=== PATIENT | female | born 1975 | race Caucasian/White ===

== ENCOUNTER → 2018-01-31 08:16 | Outpatient (POV) | payer BC, SELFPAY ==
[2018-01-31 09:35] LABS: Basophils # 0.1 K/mm3 (0-0.2); Basophils % 0.7 % (0.1-2.0); Eosinophils # 0.1 K/mm3 (0.0-0.4); Eosinophils % 1.7 % (0.1-12.0); Hematocrit 45.2 % (37.0-47.0); Hemoglobin 13.6 g/dL (12.2-16.2); Lymphocytes # 2.5 K/mm3 (0.7-4.5); Lymphocytes % 33.2 K/mm3 (10-50); Mean Corpuscular HGB Conc 30.1 g/dL (31.8-35.4); Mean Corpuscular Hemoglobin 28.1 pg (27.0-31.2); Mean Corpuscular Volume 93.3 fl (81-99); Mean Platelet Volume 7.7 fl (7.4-10.4); Monocytes # 0.3 K/mm3 (0.1-1.0); Neutrophils # 4.5 K/mm3 (1.8-7.8); Neutrophils % 60.4 % (37.0-80.0); Platelet Count 274 K/mm3 (142-424); Red Blood Count 4.84 M/mm3 (4.20-5.40); Red Cell Distribution Width 12.7 % (11.5-17.5); White Blood Count 7.4 K/mm3 (4.8-10.8)
[2018-01-31 10:37] LABS: Alanine Aminotransferase 67 U/L (12-78); Albumin Level 3.3 gm/dL (3.4-5.0); Albumin/Globulin Ratio 0.9 (1.1-1.8); Alkaline Phosphatase 108 U/L (46-116); Aspartate Amino Transferase 44 U/L (15-37); Bilirubin,Total 0.3 mg/dL (0.2-1.0); Blood Urea Nitrogen 7 mg/dL (7-18); Calcium 8.8 mg/dL (8.5-10.1); Carbon Dioxide 29 mmol/L (21.0-32.0); Chloride 103 mmol/L (98-107); Creatinine,Serum 0.76 mg/dL (0.55-1.02); Estimated Glomerular Filt Rate 84 ml/min (>60); GFR (African American) 102 ML/MIN (>60); Globulin 3.5 gm/dl (1.3-3.2); Glucose 240 mg/dL (74-106); Sodium 139 mmol/L (136-145); Total Protein,Serum 6.8 gm/dL (6.4-8.2)
== END ==
PROVIDERS: PCP Physician Assistant; Visit Provider Nurse Practitioner Acute Care
DX: R94.5 Abnormal results of liver function studies (principal)
CPT/HCPCS: 36415; 80053; 85025

== ENCOUNTER → 2018-02-02 14:43 | Outpatient (REF) | payer BC, SELFPAY ==
--- NOTE | 2018-02-02 14:50 | XR_ITS ---
XR soft tissue neck CLINICAL INDICATION: ITS.REASON: Foreign body sensation ORDERING PHYSICIAN: JANES Hammonds PATIENT AGE: 42 years Comparison: None FINDINGS: No radiopaque foreign body. The epiglottis is unremarkable. There is mild prominence of the prevertebral soft tissues at the C5 level measuring 20 mm. There is mild subglottic narrowing. No soft tissue gas apparent IMPRESSION: 1. No radiopaque foreign body evident. 2. Mild prominence of the soft tissues in the prevertebral region at the C5-C6 area of questionable clinical significance
[2018-02-02 18:45] LABS: Basophils # 0.1 K/mm3 (0-0.2); Basophils % 0.7 % (0.1-2.0); Eosinophils # 0.2 K/mm3 (0.0-0.4); Eosinophils % 1.9 % (0.1-12.0); Hematocrit 47.4 % (37.0-47.0); Hemoglobin 14.5 g/dL (12.2-16.2); Lymphocytes # 2.8 K/mm3 (0.7-4.5); Lymphocytes % 29.8 K/mm3 (10-50); Mean Corpuscular HGB Conc 30.7 g/dL (31.8-35.4); Mean Corpuscular Hemoglobin 28.5 pg (27.0-31.2); Mean Corpuscular Volume 93.1 fl (81-99); Monocytes # 0.6 K/mm3 (0.1-1.0); Neutrophils # 5.7 K/mm3 (1.8-7.8); Neutrophils % 61.5 % (37.0-80.0); Platelet Count 312 K/mm3 (142-424); Red Blood Count 5.09 M/mm3 (4.20-5.40); Red Cell Distribution Width 12.7 % (11.5-17.5); White Blood Count 9.3 K/mm3 (4.8-10.8)
[2018-02-02 19:10] LABS: Alanine Aminotransferase 70 U/L (12-78); Albumin Level 3.6 gm/dL (3.4-5.0); Albumin/Globulin Ratio 0.9 (1.1-1.8); Alkaline Phosphatase 115 U/L (46-116); Anion Gap 11.9 mEq/L (5-15); Aspartate Amino Transferase 46 U/L (15-37); Blood Urea Nitrogen 7 mg/dL (7-18); Carbon Dioxide 30 mmol/L (21.0-32.0); Chloride 104 mmol/L (98-107); Chol/HDL Ratio 6.6 (1-3.5); Cholesterol 217 mg/dL (140-200); Creatinine,Serum 0.67 mg/dL (0.55-1.02); Estimated Glomerular Filt Rate 97 ml/min (>60); GFR (African American) 118 ML/MIN (>60); Globulin 3.9 gm/dl (1.3-3.2); Glucose 107 mg/dL (74-106); HDL Cholesterol 33 mg/dL (29-89); LDL Cholesterol 114 mg/dL (0-130); Potassium 3.9 mmoL/L (3.5-5.1); Sodium 142 mmol/L (136-145); T4 (Thyroxine) 10.6 ug/dl (4.7-13.3); Thyroid Stimulating Hormone 1.29 uIU/ml (0.358-3.740); Total Protein,Serum 7.5 gm/dL (6.4-8.2); Triglycerides 351 mg/dL (30-200); VLDL Cholesterol 70 mg/dL (0-40)
[2018-02-02 19:49] LABS: Bilirubin,Total 0.3 mg/dL (0.2-1.0); Calcium 9.8 mg/dL (8.5-10.1)
[2018-02-04 15:46] LABS: Vitamin D 25 Hydroxy 23.4 ng/mL (30.0-100.0)
== END ==
LOC: LAB 14:43
PROVIDERS: Visit Provider Physician Assistant
DX: R47.02 Dysphasia (principal)
CPT/HCPCS: 70360; 80053; 80061; 82652; 83036; 84436; 84443; 85025

== ENCOUNTER → 2018-02-18 08:51 | Outpatient (CLI) | payer BC, SELFPAY ==
--- NOTE | 2018-02-18 08:54 | FL_ITS ---
FL upper GI esophagus w/air HISTORY: ITS.REASON: DYSPHAGIA sensation of food sticking in throat ORDERING PHYSICIAN: Gigi Wilburn MD PATIENT AGE: 42 years Comparison: None FINDINGS: The swallowing function and solid motility are normal. Spot films of the cervical esophagus show no abnormality while swallowing. No GE reflux was demonstrated during the study. The esophagus, stomach, and duodenum have an unremarkable appearance. There is no evidence of hiatal hernia. No ulcer or mass evident. No mucosal abnormalities apparent. There is normal peristalsis. The duodenal C-loop is nondisplaced. FLUOROSCOPY TIME : 2 minutes and 14 seconds. IMPRESSION: Negative barium swallow and upper GI series
--- NOTE | 2018-02-18 08:54 | US_ITS ---
US thyroid COMPARISON: None HISTORY: Symptoms of dysphasia TECHNIQUE: Targeted ultrasound the thyroid FINDINGS: The isthmus of the gland appears normal. The right lobe measures 2.3 x 2.6 x 4.3 cm. Left lobe measures 2.1 x 2.7 x 4.0 cm. There is a diffusely heterogenic appearance to the parenchyma in both lobes with is no discrete cystic or solid mass identified in either lobe. There is decreased vascularity in each lobe. IMPRESSION: Normal size gland with heterogenic echogenicity suggesting possibility of early subacute thyroiditis.
== END ==
PROVIDERS: PCP Physician Assistant; Visit Provider Surgery
DX: R13.10 Dysphagia, unspecified (principal)
CPT/HCPCS: 74241; 76536

== ENCOUNTER → 2018-06-20 14:23 | Outpatient (POV) | payer BC, SELFPAY | PROVIDERS: PCP Physician Assistant; Visit Provider Nurse Practitioner Acute Care | DX: Z00.00 Encounter for general adult medical examination without abnormal findings (principal) ==

== ENCOUNTER → 2018-12-22 13:38 | Outpatient (CLI) | payer BC, SELFPAY ==
[2018-12-22 18:11] LABS: Alanine Aminotransferase 42 U/L (12-78); Albumin Level 3.6 gm/dL (3.4-5.0); Albumin/Globulin Ratio 0.9 (1.1-1.8); Alkaline Phosphatase 120 U/L (46-116); Anion Gap 12.2 mEq/L (5-15); Aspartate Amino Transferase 24 U/L (15-37); Bilirubin,Total 0.3 mg/dL (0.2-1.0); Blood Urea Nitrogen 9 mg/dL (7-18); Calcium 9.1 mg/dL (8.5-10.1); Carbon Dioxide 29 mmol/L (21.0-32.0); Chloride 105 mmol/L (98-107); Creatinine,Serum 0.76 mg/dL (0.55-1.02); Estimated Glomerular Filt Rate 84 ml/min (>60); GFR (African American) 101 ML/MIN (>60); Globulin 3.8 gm/dl (1.3-3.2); Glucose 150 mg/dL (74-106); Potassium 4.2 mmoL/L (3.5-5.1); Sodium 142 mmol/L (136-145); Total Protein,Serum 7.4 gm/dL (6.4-8.2)
== END ==
PROVIDERS: Visit Provider Nurse Practitioner Acute Care
DX: K30 Functional dyspepsia (principal); F45.8 Other somatoform disorders
CPT/HCPCS: 36415; 80053

== ENCOUNTER → 2019-07-24 10:49 | Outpatient (CLI) | payer BC, SELFPAY ==
[2019-07-24 13:08] LABS: Amphetamine/Metha Screen,Urine Negative ng/mL (<1000); Barbiturates Screen,Urine Negative ng/mL (<200); Benzodiazepines Screen,Urine Negative ng/mL (<200); Cannabinoid Screen,Urine Negative ng/mL (<50); Cocaine Screen,Urine Negative ng/mL (<300); Methadone Screen,Urine Negative ng/mL (<300); Opiate Screen,Urine Negative ng/mL (<300); Phencyclidine Screen,Urine Negative ng/mL (<25)
[2019-08-08 16:04] LABS: Ethanol U, Quan NEGATIVE
== END ==
PROVIDERS: Visit Provider Registered Nurse
DX: F90.2 Attention-deficit hyperactivity disorder, combined type (principal)
CPT/HCPCS: 80305; 80307

== ENCOUNTER → 2019-08-02 15:47 | Outpatient (CLI) | payer BC, SELFPAY ==
[2019-08-02 18:27] LABS: Alanine Aminotransferase 31 U/L (12-78); Albumin Level 3.7 gm/dL (3.4-5.0); Alkaline Phosphatase 104 U/L (46-116); Aspartate Amino Transferase 22 U/L (15-37); Bilirubin,Total 0.2 mg/dL (0.2-1.0); Blood Urea Nitrogen 8 mg/dL (7-18); Calcium 8.9 mg/dL (8.5-10.1); Carbon Dioxide 28 mmol/L (21.0-32.0); Chloride 102 mmol/L (98-107); Creatinine,Serum 0.66 mg/dL (0.55-1.02); Estimated Glomerular Filt Rate 99 ml/min (>60); GFR (African American) 119 ML/MIN (>60); Globulin 3.7 gm/dl (1.3-3.2); Glucose 81 mg/dL (74-106); Sodium 140 mmol/L (136-145); Total Protein,Serum 7.4 gm/dL (6.4-8.2)
[2019-08-02 18:57] LABS: Hemoglobin A1C 5.7 % (0.0-7.0)
== END ==
PROVIDERS: Visit Provider Nurse Practitioner Family
DX: K30 Functional dyspepsia (principal); K75.81 Nonalcoholic steatohepatitis (NASH); R73.09 Other abnormal glucose; F45.8 Other somatoform disorders
CPT/HCPCS: 36415; 80053; 83036

== ENCOUNTER → 2019-08-07 10:09 | Outpatient (POV) | payer BC, SELFPAY | PROVIDERS: Visit Provider Nurse Practitioner Family | DX: Z00.00 Encounter for general adult medical examination without abnormal findings (principal) ==

== ENCOUNTER → 2020-08-02 13:03 | Outpatient (CLI) | payer BC, SELFPAY ==
[2020-08-02 15:01] LABS: Chloride 106 mmol/L (98-107); Potassium 4.3 mmoL/L (3.5-5.1); Sodium 139 mmol/L (136-145)
[2020-08-02 15:04] LABS: Alanine Aminotransferase 27 U/L (12-78); Albumin Level 4.1 g/dl (3.5-5.0); Albumin/Globulin Ratio 1.4 (1.1-1.8); Alkaline Phosphatase 69 U/L (38-126); Anion Gap 11.3 mEq/L (5-15); Aspartate Amino Transferase 25 U/L (14-36); Bilirubin,Total 0.3 mg/dl (0.2-1.3); Blood Urea Nitrogen 14 mg/dl (7-17); Carbon Dioxide 26 mmol/L (22.0-30.0); Estimated Glomerular Filt Rate 92 ml/min (>60); GFR (African American) 111 ML/MIN (>60); Globulin 2.9 g/dL (1.3-3.2)
[2020-08-02 15:05] LABS: Calcium 9.2 mg/dl (8.4-10.2); Glucose 106 mg/dl (74-100)
== END ==
PROVIDERS: Visit Provider Nurse Practitioner Family
DX: K30 Functional dyspepsia (principal); K76.9 Liver disease, unspecified; K58.9 Irritable bowel syndrome, unspecified; F45.8 Other somatoform disorders
CPT/HCPCS: 36415; 80053

== ENCOUNTER → 2020-08-05 08:19 | Outpatient (POV) | payer BC, SELFPAY | PROVIDERS: Visit Provider Nurse Practitioner Family | DX: Z00.00 Encounter for general adult medical examination without abnormal findings (principal) ==

== ENCOUNTER 2020-09-10 20:35 | Emergency (ER) | payer BC, SELFPAY ==
[2020-09-10 20:35] VITALS: BP 159/89; PULSE 107; RESP 16; TEMP 36.4; O2SAT 97; BMI 41.7
--- NOTE | 2020-09-10 21:08 | HMH.EDUTC ---
[facility] [place] Disposition Clinical Impression: Exposure to COVID-19 virus Disposition: Home, Self-Care Condition on Discharge: Good Instructions: Preventing the Spread of Coronavirus Discharge Instructions, DI for COVID-19 (Suspected or Confirmed ) Additional Instructions: Drink plenty of fluids. Take tylenol for pain or fever. Return if you begin to have difficulty breathing. Follow up with your regular doctor. GO TO THE ER FOR ANY WORSENING SYMPTOMS Referrals: Kathy Fairbanks PA [Primary Care Provider] - Time of Disposition: 21:10 Medical Decision Making - Medical Records Medical records reviewed: No: I reviewed the patient's medical records. - Jus Inquiry Pt receiving controlled substance: No Vital Signs: 09/10/20 20:35 Temperature 97.5 F L Temperature Source Oral Pulse Rate [Right] 107 H Respiratory Rate 16 Blood Pressure [Right Arm] 159/89 H Blood Pressure Mean [Right Arm] 112 02 Sat by Pulse Oximetry 97 Orders (Tests/Meds): ORDERS Category Date Time Status Covid-19 Nasal PCR Sendout P&C Routine Lab 09/10/20 20:37 Ordered [facility] [place] HPI - General Stated complaint: covid test Time Seen by Provider: 09/10/20 21:08 Description of Symptoms (Recalled from Triage Doc. by RN): pt request covid test pt c/o body aches, sore throat HEENT Symptoms (Recalled from RN notes): No Resp Symptoms (Recalled from RN notes): Yes Skin Symptoms (Recalled from RN notes): No MS Symptoms (Recalled from RN notes): No Functional Status (Recalled from RN notes): wnl - History of Present Illness Provider Complaint: Her mother has been diagnosed with Covid-19. She has been around her mother a lot. She denies any symptoms so far. - Related Data Home Medications Medication Instructions Recorded Confirmed vortioxetine 10 mg tablet 10 mg PO DAILY 30 Days #30 11/10/17 03/04/20 alpha lipoic acid 200 mg capsule 200 mg PO DAILY cap 11/15/17 03/04/20 colestipol 1 gram tablet 2 g PO DAILY 11/15/17 03/04/20 Cholecalciferol (Vitamin D3) 1,000 unit PO ONCE 04/22/18 03/04/20 [Vitamin D3 1,000 Unit Cap] Ergocalciferol (Vitamin D2) 50,000 unit PO QWEEK 04/22/18 03/04/20 [Drisdol] Fluticasone Propionate [Flonase 1 spray INTRANASAL QDAY 09/16/19 03/04/20 Allergy Relief NS] Imipramine HCl [Tofranil 25mg 50 mg PO DAILY 09/16/19 03/04/20 tablet] Metformin HCl 500 mg PO HS 09/16/19 03/04/20 Previous Rx's Medication Instructions Recorded atorvastatin 10 mg tablet See Rx Instructions .ROUTE 11/02/19 .COMPLEX #90 tab methylprednisolone 4 mg tablets in 4 mg PO PER PKG DIR 6 Days #21 tab 03/04/20 a dose pack triamcinolone acetonide 0.1 % 1 applic TOPICAL BID #30 g 03/04/20 topical cream nebivolol 5 mg tablet 5 mg PO DAILY #30 tab 06/17/20 levothyroxine 125 mcg tablet 125 mcg PO DAILY #90 tab 08/01/20 Allergies Allergy/AdvReac Type Severity Reaction Status Date / Time Penicillins [PENICILLINS] Allergy Unknown I-RASH Verified 09/10/20 21:08 - Worker's Comp Is this a Worker's Comp case?: No Is this an H Worker's Comp?: No Is this a [place] Worker's Comp?: No [facility] History - Hepatitis A Screen Drug use history?: No High risk sexual behaviors?: No History of sexually transmitted infection?: No Currently employed?: No Childcare worker?: No Do you have indoor plumbing?: Yes Do you have electricity?: Yes Attestation statement:: This patient has been screened for Hepatitis A risk factors. I have reviewed the patient's past medical history: Yes Medical History: Reports:: Depression, Hyperlipidemia, Lung Disease Denies:: Diabetes Mellitus Type 1, Diabetes Mellitus Type 2, Internal Pacemaker, Seizures Other Medical History: Reports: Hypothyroidism, Other Comment: ADHD Laterality Cases: Bilateral: Tonsillectomy Other Surgeries: Yes: Hysterectomy-Partial, Other. No: Pacemaker Amputation: No Fractures: No Comment: Gallbladder, tympanostomy tubes - Social History Smoking Statu
[2020-09-10 21:16] VITALS: BP 159/89; PULSE 107; RESP 16; TEMP 36.4; O2SAT 97
--- NOTE | 2020-09-12 10:29 | PC.NURSE ---
PT NOTIFIED OF POSITIVE COVID RESULT
[2020-09-12 10:37] LABS: Covid-19 Nasal PCR Sendout P&C POSITIVE
== END 2020-09-10 21:24 | disposition home or self-care (01) ==
PROVIDERS: Emergency Provider Nurse Practitioner Family; PCP Physician Assistant
DX: U07.1 COVID-19 (principal); E78.5 Hyperlipidemia, unspecified; F33.1 Major depressive disorder, recurrent, moderate; E03.9 Hypothyroidism, unspecified; I10 Essential (primary) hypertension; Z79.899 Other long term (current) drug therapy
CPT/HCPCS: 99202; G0463; U0004

== ENCOUNTER 2020-09-17 12:41 | Emergency (ER) | payer BC, SELFPAY ==
[2020-09-17 12:45] VITALS: BP 141/74; PULSE 113; RESP 23; TEMP 37.2; O2SAT 99; BMI 40.4
--- NOTE | 2020-09-17 12:51 | XR_ITS ---
PROCEDURE: XR CHEST PORTABLE CLINICAL HISTORY: chest congestion COMPARISON: No exams were available for comparison FINDINGS: The cardiomediastinal silhouette and pulmonary vascularity are within normal limits. The lungs are clear without infiltrates, suspicious nodules, or pleural effusions. No acute bony abnormalities. IMPRESSION: No acute findings. Dictated by: Cristian Petersen MD 09/17/2020 13:02 Cristian Petersen MD in OV 09/17/2020 13:02
--- NOTE | 2020-09-17 13:04 | HMH.EDUTC ---
[facility] [place] Disposition Clinical Impression: Muscle ache Disposition: Home, Self-Care Condition on Discharge: Good Instructions: DI for COVID-19 (Suspected or Confirmed ), Coronavirus Disease 2019, Preventing the Spread of Coronavirus Discharge Instructions Additional Instructions: Continue medication as prescribed *Warm soaks may help with muscle aches and pain Return if needed Straight to ER if any life threatening symptoms or worsening of symptoms associated with COVID Referrals: Kathy Fairbanks PA [Primary Care Provider] - As needed Medical Decision Making - Jus Inquiry Pt receiving controlled substance: No Jus was queried for this patient: No Vital Signs: 09/17/20 12:45 09/17/20 13:20 Temperature 98.9 F 98.9 F Temperature Source Oral Pulse Rate 113 H Pulse Rate [Left Brachial] 113 H Respiratory Rate 23 23 Blood Pressure 141/74 H Blood Pressure [Right Arm] 141/74 H Blood Pressure Mean [Right Arm] 96 Blood Pressure Source [Right Arm] Automatic Cuff Blood Pressure Position [Right Arm] Sitting 02 Sat by Pulse Oximetry 99 Oxygen Delivery Method Room Air - Radiology Data #1 Image(s): Chest Image Reviewed: Yes I have reviewed radiologist's interpretation Preliminary Findings: Normal/NAD IMPRESSION: No acute findings. [facility] [place] HPI - General Stated complaint: covid +, chest congestion Time Seen by Provider: 09/17/20 13:04 Mode of Arrival: Ambulatory Source of Information: Patient Limitations: No Limitations Description of Symptoms (Recalled from Triage Doc. by RN): PATIENT TESTED POSITIVE FOR COVID ON WEDNESDAY. C/O CHEST HEAVINESS TODAY, STATING IT FEELS LIKE SOMEONE IS STEPPING ON IT. PT REPORTS SHE CALLED HER PCP WHO RECOMMENDED SHE COME HERE AND GET A CHEST X RAY HEENT Symptoms (Recalled from RN notes): No Resp Symptoms (Recalled from RN notes): No Skin Symptoms (Recalled from RN notes): No MS Symptoms (Recalled from RN notes): No Functional Status (Recalled from RN notes): WNL - History of Present Illness Provider Complaint: Patient state that she has been feeling like her chest muscles is sore like they would be from coughing and feels tight like at times hard to get a deep breath and she was worried that she may be getting some chest congestion but not coughing anything up. State that she tested positive for COVID one week ago Denies chest pain denies shortness of breath States that she talked to her PCP and they told her she may need to come in and get a chest xray - Related Data Home Medications Medication Instructions Recorded Confirmed vortioxetine 10 mg tablet 10 mg PO DAILY 30 Days #30 11/10/17 03/04/20 alpha lipoic acid 200 mg capsule 200 mg PO DAILY cap 11/15/17 03/04/20 colestipol 1 gram tablet 2 g PO DAILY 11/15/17 03/04/20 Cholecalciferol (Vitamin D3) 1,000 unit PO ONCE 04/22/18 03/04/20 [Vitamin D3 1,000 Unit Cap] Ergocalciferol (Vitamin D2) 50,000 unit PO QWEEK 04/22/18 03/04/20 [Drisdol] Fluticasone Propionate [Flonase 1 spray INTRANASAL QDAY 09/16/19 03/04/20 Allergy Relief NS] Imipramine HCl [Tofranil 25mg 50 mg PO DAILY 09/16/19 03/04/20 tablet] Metformin HCl 500 mg PO HS 09/16/19 03/04/20 Previous Rx's Medication Instructions Recorded atorvastatin 10 mg tablet See Rx Instructions .ROUTE 11/02/19 .COMPLEX #90 tab methylprednisolone 4 mg tablets in 4 mg PO PER PKG DIR 6 Days #21 tab 03/04/20 a dose pack triamcinolone acetonide 0.1 % 1 applic TOPICAL BID #30 g 03/04/20 topical cream nebivolol 5 mg tablet 5 mg PO DAILY #30 tab 06/17/20 levothyroxine 125 mcg tablet 125 mcg PO DAILY #90 tab 08/01/20 Ondansetron [Zofran 4mg ODT] 4 mg PO Q8HP PRN #20 tab.rapdis 09/10/20 azithromycin 250 mg tablet See Rx Instructions PO .COMPLEX #6 09/13/20 tab prednisone 20 mg tablet 20 mg PO BID #10 tab 09/13/20 Allergies Allergy/AdvReac Type Severity Reaction Status Date / Time Penicillins [PENICILLINS] Allergy Unknown I-RASH Verified
[2020-09-17 13:20] VITALS: BP 141/74; PULSE 113; RESP 23; TEMP 37.2; O2SAT 99
== END 2020-09-17 13:28 | disposition home or self-care (01) ==
PROVIDERS: Emergency Provider Nurse Practitioner; PCP Physician Assistant
DX: U07.1 COVID-19 (principal); R07.89 Other chest pain; E11.9 Type 2 diabetes mellitus without complications; E03.9 Hypothyroidism, unspecified; Z88.0 Allergy status to penicillin; Z79.899 Other long term (current) drug therapy
CPT/HCPCS: 71045; 99202; G0463

== ENCOUNTER → 2021-07-31 14:11 | Outpatient (CLI) | payer BC, SELFPAY ==
[2021-07-31 14:43] LABS: Basophils # 0.1 K/mm3 (0-0.2); Basophils % 0.9 % (0.1-2.0); Eosinophils # 0.1 K/mm3 (0.0-0.4); Eosinophils % 1.3 % (0.1-12.0); Hematocrit 42.9 % (37.0-47.0); Lymphocytes # 2.8 K/mm3 (0.7-4.5); Lymphocytes % 30.9 % (10-50); Mean Corpuscular HGB Conc 32.6 g/dL (31.8-35.4); Mean Corpuscular Hemoglobin 29.3 pg (27.0-31.2); Mean Platelet Volume 8.2 fl (7.4-10.4); Monocytes # 0.5 K/mm3 (0.1-1.0); Monocytes % 5.1 % (1.7-9.3); Neutrophils # 5.7 K/mm3 (1.8-7.8); Neutrophils % 61.8 % (37.0-80.0); Platelet Count 414 K/mm3 (142-424); Red Blood Count 4.77 M/mm3 (4.20-5.40); Red Cell Distribution Width 12.9 % (11.5-17.5); White Blood Count 9.1 K/mm3 (4.8-10.8)
[2021-07-31 15:26] LABS: Chloride 103 mmol/L (98-107); Sodium 140 mmol/L (136-145)
[2021-07-31 15:27] LABS: Potassium 4.4 mmoL/L (3.5-5.1)
[2021-07-31 15:29] LABS: Alanine Aminotransferase 31 U/L (12-78); Albumin Level 4.4 g/dl (3.5-5.0); Albumin/Globulin Ratio 1.5 (1.1-1.8); Alkaline Phosphatase 98 U/L (38-126); Anion Gap 12.4 mEq/L (5-15); Aspartate Amino Transferase 42 U/L (14-36); Bilirubin,Total 0.3 mg/dl (0.2-1.3); Blood Urea Nitrogen 12 mg/dl (7-17); Carbon Dioxide 29 mmol/L (22.0-30.0); Estimated Glomerular Filt Rate 91 ml/min (>60); GFR (African American) 111 ML/MIN (>60); Globulin 2.9 g/dL (1.3-3.2); Total Protein,Serum 7.3 g/dl (6.3-8.2)
[2021-07-31 15:30] LABS: Calcium 9.5 mg/dl (8.4-10.2); Glucose 118 mg/dl (74-100)
== END ==
PROVIDERS: Visit Provider Nurse Practitioner Family
DX: K75.81 Nonalcoholic steatohepatitis (NASH) (principal); F45.8 Other somatoform disorders; K58.9 Irritable bowel syndrome, unspecified; K30 Functional dyspepsia
CPT/HCPCS: 36415; 80053; 85025

== ENCOUNTER → 2021-11-20 16:12 | Outpatient (CLI) | payer BC, SELFPAY ==
[2021-11-20 13:11] LABS: Basophils # 0.1 K/mm3 (0-0.2); Basophils % 1.4 % (0.1-2.0); Eosinophils # 0.1 K/mm3 (0.0-0.4); Eosinophils % 1.1 % (0.1-12.0); Hematocrit 43.1 % (37.0-47.0); Hemoglobin 13.7 g/dL (12.2-16.2); Lymphocytes # 2.8 K/mm3 (0.7-4.5); Lymphocytes % 30.5 % (10-50); Mean Corpuscular HGB Conc 31.8 g/dL (31.8-35.4); Mean Corpuscular Hemoglobin 29.9 pg (27.0-31.2); Mean Platelet Volume 8.5 fl (7.4-10.4); Monocytes # 0.6 K/mm3 (0.1-1.0); Monocytes % 6.2 % (1.7-9.3); Neutrophils # 5.6 K/mm3 (1.8-7.8); Neutrophils % 60.8 % (37.0-80.0); Platelet Count 425 K/mm3 (142-424); Red Blood Count 4.59 M/mm3 (4.20-5.40); White Blood Count 9.2 K/mm3 (4.8-10.8)
[2021-11-20 13:36] LABS: Alanine Aminotransferase 32 U/L (12-78); Albumin Level 4.2 g/dl (3.5-5.0); Albumin/Globulin Ratio 1.4 (1.1-1.8); Alkaline Phosphatase 91 U/L (38-126); Anion Gap 10.9 mEq/L (5-15); Aspartate Amino Transferase 33 U/L (14-36); Bilirubin,Total 0.5 mg/dl (0.2-1.3); Blood Urea Nitrogen 18 mg/dl (7-17); Calcium 9.4 mg/dl (8.4-10.2); Carbon Dioxide 30 mmol/L (22.0-30.0); Chloride 102 mmol/L (98-107); Chol/HDL Ratio 3.6 (1-3.5); Cholesterol 151 mg/dl (140-200); Estimated Glomerular Filt Rate 91 ml/min (>60); GFR (African American) 110 ML/MIN (>60); Glucose 95 mg/dl (74-100); HDL Cholesterol 42 mg/dl (40-60); Potassium 4.9 mmoL/L (3.5-5.1); Sodium 138 mmol/L (136-145); Total Protein,Serum 7.2 g/dl (6.3-8.2); Triglycerides 207 mg/dl (30-150); VLDL Cholesterol 41 mg/dL (0-40)
[2021-11-20 13:46] LABS: Direct LDL Cholesterol 75.13 mg/dL (100-129)
[2021-11-20 13:51] LABS: 25-OH Vitamin D, Total 18.6 ng/mL (30-100)
[2021-11-20 14:06] LABS: Thyroid Stimulating Hormone 0.49 uIU/mL (0.465-4.68)
== END ==
PROVIDERS: Visit Provider Physician Assistant
DX: E03.9 Hypothyroidism, unspecified (principal); E55.9 Vitamin D deficiency, unspecified
CPT/HCPCS: 80053; 80061; 82306; 84443; 85025

== ENCOUNTER → 2022-08-04 08:11 | Outpatient (CLI) | payer BC, SELFPAY ==
[2022-08-04 09:05] LABS: Basophils # 0.1 K/mm3 (0-0.2); Basophils % 0.8 % (0.1-2.0); Eosinophils # 0.1 K/mm3 (0.0-0.4); Eosinophils % 1.5 % (0.1-12.0); Hematocrit 41.8 % (37.0-47.0); Hemoglobin 13.1 g/dL (12.2-16.2); Lymphocytes % 31.9 % (10-50); Mean Corpuscular HGB Conc 31.3 g/dL (31.8-35.4); Mean Corpuscular Hemoglobin 28.8 pg (27.0-31.2); Mean Corpuscular Volume 92.1 fl (81-99); Mean Platelet Volume 8.2 fl (7.4-10.4); Monocytes # 0.6 K/mm3 (0.1-1.0); Neutrophils # 5.6 K/mm3 (1.8-7.8); Neutrophils % 59.7 % (37.0-80.0); Platelet Count 346 K/mm3 (142-424); Red Blood Count 4.54 M/mm3 (4.20-5.40); Red Cell Distribution Width 13.3 % (11.5-17.5); White Blood Count 9.4 K/mm3 (4.8-10.8)
[2022-08-04 10:57] LABS: Chloride 105 mmol/L (98-107)
[2022-08-04 10:58] LABS: Potassium 4.6 mmoL/L (3.5-5.1); Sodium 136 mmol/L (136-145)
[2022-08-04 11:00] LABS: Blood Urea Nitrogen 15 mg/dl (7-17); Estimated Glomerular Filt Rate 90 ml/min (>60); GFR (African American) 109 ML/MIN (>60)
[2022-08-04 11:01] LABS: Alanine Aminotransferase 33 U/L (12-78); Albumin/Globulin Ratio 1.5 (1.1-1.8); Alkaline Phosphatase 96 U/L (38-126); Anion Gap 8.6 mEq/L (5-15); Aspartate Amino Transferase 33 U/L (14-36); Calcium 9.5 mg/dl (8.4-10.2); Carbon Dioxide 27 mmol/L (22.0-30.0); Globulin 2.7 g/dL (1.3-3.2); Glucose 101 mg/dl (74-100); Total Protein,Serum 6.7 g/dl (6.3-8.2)
[2022-08-04 11:06] LABS: Bilirubin,Total < 0.1 mg/dl (0.2-1.3)
== END ==
PROVIDERS: PCP Physician Assistant; Visit Provider Nurse Practitioner Family
DX: K30 Functional dyspepsia (principal); F45.8 Other somatoform disorders; K58.9 Irritable bowel syndrome, unspecified; R94.5 Abnormal results of liver function studies; K75.81 Nonalcoholic steatohepatitis (NASH)
CPT/HCPCS: 36415; 80053; 85025

== ENCOUNTER → 2023-06-21 09:13 | Outpatient (CLI) | payer BC, SELFPAY ==
[2023-06-21 20:20] LABS: Basophils % 0.5 % (0.1-2.0); Eosinophils # 0.1 K/mm3 (0.0-0.4); Eosinophils % 1.2 % (0.1-12.0); Hematocrit 40.8 % (37.0-47.0); Hemoglobin 13.5 g/dL (12.2-16.2); Lymphocytes # 2.5 K/mm3 (0.7-4.5); Lymphocytes % 32.1 % (10-50); Mean Corpuscular Hemoglobin 30.6 pg (27.0-31.2); Mean Corpuscular Volume 92.8 fl (81-99); Mean Platelet Volume 9.4 fl (7.4-10.4); Monocytes # 0.6 K/mm3 (0.1-1.0); Monocytes % 7.7 % (1.7-9.3); Neutrophils # 4.6 K/mm3 (1.8-7.8); Neutrophils % 58.5 % (37.0-80.0); Platelet Count 308 K/mm3 (142-424); White Blood Count 7.9 K/mm3 (4.8-10.8)
[2023-06-21 20:28] LABS: Alanine Aminotransferase 44 U/L (12-78); Albumin Level 4.1 g/dl (3.5-5.0); Albumin/Globulin Ratio 1.3 (1.1-1.8); Alkaline Phosphatase 109 U/L (38-126); Anion Gap 14.6 mEq/L (5-15); Aspartate Amino Transferase 39 U/L (14-36); Bilirubin,Total 0.3 mg/dl (0.2-1.3); Blood Urea Nitrogen 15 mg/dl (7-17); Calcium 9.5 mg/dl (8.4-10.2); Carbon Dioxide 25 mmol/L (22.0-30.0); Chloride 105 mmol/L (98-107); Chol/HDL Ratio 3.8 (1-3.5); Cholesterol 150 mg/dl (140-200); Estimated Glomerular Filt Rate 90 ml/min (>60); GFR (African American) 109 ML/MIN (>60); Globulin 3.1 g/dL (1.3-3.2); Glucose 88 mg/dl (74-100); HDL Cholesterol 40 mg/dl (40-60); Potassium 4.6 mmoL/L (3.5-5.1); Sodium 140 mmol/L (136-145); Total Protein,Serum 7.2 g/dl (6.3-8.2); Triglycerides 223 mg/dl (30-150); VLDL Cholesterol 45 mg/dL (0-40)
[2023-06-21 20:39] LABS: Direct LDL Cholesterol 87.21 mg/dL (100-129)
[2023-06-21 20:45] LABS: T4 (Thyroxine) 11.3 ug/dl (5.53-11.0)
[2023-06-21 20:47] LABS: 25-OH Vitamin D, Total 21.5 ng/mL (30-100)
[2023-06-21 20:59] LABS: Thyroid Stimulating Hormone 1.22 uIU/mL (0.465-4.68)
== END ==
PROVIDERS: PCP Physician Assistant; Visit Provider Physician Assistant
DX: E78.5 Hyperlipidemia, unspecified (principal); R03.0 Elevated blood-pressure reading, without diagnosis of hypertension; Z79.84 Long term (current) use of oral hypoglycemic drugs; Z79.899 Other long term (current) drug therapy
CPT/HCPCS: 80053; 80061; 82306; 84436; 84443; 85025

== ENCOUNTER → 2023-07-29 11:39 | Outpatient (CLI) | payer BC, SELFPAY ==
[2023-07-29 13:30] LABS: Alanine Aminotransferase 44 U/L (12-78); Albumin Level 4.4 g/dl (3.5-5.0); Albumin/Globulin Ratio 1.4 (1.1-1.8); Alkaline Phosphatase 85 U/L (38-126); Anion Gap 13.2 mEq/L (5-15); Aspartate Amino Transferase 41 U/L (14-36); Bilirubin,Total 0.5 mg/dl (0.2-1.3); Blood Urea Nitrogen 11 mg/dl (7-17); Calcium 9.2 mg/dl (8.4-10.2); Carbon Dioxide 26 mmol/L (22.0-30.0); Chloride 101 mmol/L (98-107); Estimated Glomerular Filt Rate 78 ml/min (>60); GFR (African American) 94 ML/MIN (>60); Globulin 3.1 g/dL (1.3-3.2); Glucose 106 mg/dl (74-100); Potassium 4.2 mmoL/L (3.5-5.1); Sodium 136 mmol/L (136-145); Total Protein,Serum 7.5 g/dl (6.3-8.2)
== END ==
PROVIDERS: PCP Physician Assistant; Visit Provider Nurse Practitioner Family
DX: K30 Functional dyspepsia (principal); K58.9 Irritable bowel syndrome, unspecified; K75.81 Nonalcoholic steatohepatitis (NASH)
CPT/HCPCS: 36415; 80053

== ENCOUNTER 2023-10-05 10:05 | Outpatient (CLI) | payer BC, SELFPAY ==
--- NOTE | 2023-10-05 10:08 | XR_ITS ---
FINAL REPORT CLINICAL HISTORY: Bilateral wrist pain COMPARISON: None FINDINGS: AP, oblique, and lateral views of the right wrist were obtained. There is no prior exam for comparison. There is no acute fracture or dislocation. Mild degenerative changes present. The soft tissues are normal. IMPRESSION: No acute osseous abnormality of the right wrist. Mild degenerative change. Reviewed, Interpreted and Dictated by Gigi Alex III, MD Transcribed by Radha Watkins Authenticated and [facility]
--- NOTE | 2023-10-05 10:08 | XR_ITS ---
FINAL REPORT CLINICAL HISTORY: bilateral wrist pain COMPARISON: None FINDINGS: AP, oblique, and lateral views of the left wrist were obtained. There is no prior exam for comparison. There is no acute fracture or dislocation. The joint spaces are preserved. The soft tissues are normal. IMPRESSION: No acute osseous abnormality of the left wrist. Reviewed, Interpreted and Dictated by Gigi Alex III, MD Transcribed by Radha Watikns Authenticated and [facility]
== END 2023-10-05 23:59 ==
LOC: RAD 10:06
PROVIDERS: PCP Physician Assistant; Visit Provider Orthopaedic Surgery
DX: M25.531 Pain in right wrist (principal); M25.532 Pain in left wrist
CPT/HCPCS: 73110

== ENCOUNTER 2024-02-25 12:58 | Outpatient (CLI) | payer BC, SELFPAY | END 2024-02-25 23:59 | disposition home or self-care (01) | LOC: RAD 12:58 | PROVIDERS: PCP Physician Assistant; Visit Provider Obstetrics & Gynecology | DX: Z12.31 Encounter for screening mammogram for malignant neoplasm of breast (principal) | CPT/HCPCS: 77063; 77067 ==

== ENCOUNTER 2024-02-29 14:41 | Outpatient (CLI) | payer BC, SELFPAY ==
[2024-02-29 17:03] LABS: Basophils % 0.5 % (0.1-2.0); Eosinophils # 0.1 K/mm3 (0.0-0.4); Hematocrit 42.2 % (37.0-47.0); Hemoglobin 13.2 g/dL (12.2-16.2); Lymphocytes # 2.4 K/mm3 (0.7-4.5); Lymphocytes % 27.1 % (10-50); Mean Corpuscular HGB Conc 31.1 g/dL (31.8-35.4); Mean Corpuscular Hemoglobin 29.5 pg (27.0-31.2); Mean Corpuscular Volume 94.6 fl (81-99); Mean Platelet Volume 8.1 fl (7.4-10.4); Monocytes # 0.5 K/mm3 (0.1-1.0); Monocytes % 5.9 % (1.7-9.3); Neutrophils # 5.7 K/mm3 (1.8-7.8); Neutrophils % 65.5 % (37.0-80.0); Platelet Count 285 K/mm3 (142-424); Red Blood Count 4.46 M/mm3 (4.20-5.40); Red Cell Distribution Width 13.3 % (11.5-17.5); White Blood Count 8.7 K/mm3 (4.8-10.8)
[2024-02-29 17:32] LABS: Hemoglobin A1C 5.5 % (4.0-6.0)
[2024-02-29 18:18] LABS: Chloride 106 mmol/L (98-107); Potassium 4.7 mmoL/L (3.5-5.1); Sodium 141 mmol/L (136-145)
[2024-02-29 18:20] LABS: Alanine Aminotransferase 45 U/L (12-78); Aspartate Amino Transferase 46 U/L (14-36); Blood Urea Nitrogen 12 mg/dl (7-17); Estimated Glomerular Filt Rate 77 ml/min (>60); GFR (African American) 93 ML/MIN (>60)
[2024-02-29 18:21] LABS: Albumin Level 4.3 g/dl (3.5-5.0); Albumin/Globulin Ratio 1.4 (1.1-1.8); Alkaline Phosphatase 75 U/L (38-126); Anion Gap 10.7 mEq/L (5-15); Bilirubin,Total 0.3 mg/dl (0.2-1.3); Calcium 9.4 mg/dl (8.4-10.2); Carbon Dioxide 29 mmol/L (22.0-30.0); Cholesterol 163 mg/dl (140-200); Globulin 3.1 g/dL (1.3-3.2); Glucose 80 mg/dl (74-100); HDL Cholesterol 41 mg/dl (40-60); Total Protein,Serum 7.4 g/dl (6.3-8.2); Triglycerides 163 mg/dl (30-150); VLDL Cholesterol 33 mg/dL (0-40)
[2024-02-29 18:32] LABS: Direct LDL Cholesterol 91.03 mg/dL (100-129)
[2024-03-01 10:36] LABS: Thyroid Stimulating Hormone 0.65 uIU/mL (0.465-4.68)
== END 2024-02-29 23:59 | disposition home or self-care (01) ==
LOC: LAB.DROPOF 03-01 14:42
PROVIDERS: PCP Physician Assistant; Visit Provider Physician Assistant
DX: E03.9 Hypothyroidism, unspecified (principal); E55.9 Vitamin D deficiency, unspecified; E78.5 Hyperlipidemia, unspecified
CPT/HCPCS: 80050; 80053; 80061; 83036; 84443; 85025

== ENCOUNTER 2024-03-07 14:45 | Outpatient (CLI) | payer BC, SELFPAY ==
--- NOTE | 2024-03-07 14:45 | US_ITS ---
PROCEDURE INFORMATION: Exam: US Left Breast, Complete MG Left Diagnostic Breast Tomosynthesis Exam date and time: 03/07/2024 2:32 PM Age: 48 years old Clinical indication: Callback for additional assessment of possible architectural change in the middle 3rd of the left upper outer quadrant identified on screening mammogram 02/25/2024 TECHNIQUE: Imaging protocol: Complete ultrasound of all four quadrants of the left breast and the retroareolar regions, including ultrasound of the axilla when performed. Left Diagnostic tomosynthesis and 2D mammography including computer-aided detection (CAD) when performed. Unilateral or bilateral exam. COMPARISON: MG MM DIG SCREENING MAMM BI W/CAD 02/25/2024 12:50 PM FINDINGS: MAMMOGRAPHY: Breast composition: There are scattered areas of fibroglandular density. Breast mammogram findings: No persistent mass, architectural distortion, or suspicious calcifications are present to suggest malignancy. Findings from recent screening mammography probably reflect overlapping fibroglandular tissue ULTRASOUND: Breast ultrasound findings: Four quadrant and retroareolar left breast ultrasound and left axilla ultrasound There is a reniform shaped circumscribed hypoechoic 0.5 x 0.3 x 0.3 cm mass in the 4 o'clock left breast 3 cm from the nipple. This has features highly suggestive of a benign intramammary lymph node with no mammographic correlate Specifically, in the upper outer middle 1/3 only normal glandular structures are appreciated Otherwise, only normal glandular structures are present in the regions assessed No suspicious solid or cystic mass is present. No architectural distortion or shadowing is present. No axillary adenopathy is present. IMPRESSION: Six-month follow-up targeted 4 o'clock left breast ultrasound is recommended to assess stability of a suspected incidentally discovered 0.5 cm intramammary lymph node No mammographic evidence of malignancy. Recommend annual screening mammography unless otherwise clinically indicated. ASSESSMENT: BI-RADS category 3: Probably benign
== END 2024-03-07 23:59 | disposition home or self-care (01) ==
LOC: RAD 14:45
PROVIDERS: PCP Obstetrics & Gynecology; Visit Provider Obstetrics & Gynecology
DX: R92.8 Other abnormal and inconclusive findings on diagnostic imaging of breast (principal)
CPT/HCPCS: 76641; 77061; 77065; G0279

== ENCOUNTER 2024-10-30 12:04 | Outpatient (CLI) | payer BC, SELFPAY ==
[2024-10-30 12:41] LABS: Basophils % 0.5 % (0.1-2.0); Eosinophils # 0.1 K/mm3 (0.0-0.4); Eosinophils % 1.2 % (0.1-12.0); Lymphocytes # 2.2 K/mm3 (0.7-4.5); Lymphocytes % 27.5 % (10-50); Mean Corpuscular HGB Conc 31.7 g/dL (31.8-35.4); Mean Corpuscular Hemoglobin 28.8 pg (27.0-31.2); Mean Corpuscular Volume 90.7 fl (81-99); Monocytes # 0.8 K/mm3 (0.1-1.0); Monocytes % 10.2 % (1.7-9.3); Neutrophils # 4.9 K/mm3 (1.8-7.8); Neutrophils % 60.2 % (37.0-80.0); Platelet Count 293 K/mm3 (142-424); Red Blood Count 4.52 M/mm3 (4.20-5.40); Red Cell Distribution Width 12.8 % (11.5-17.5); White Blood Count 8.2 K/mm3 (4.8-10.8)
[2024-10-30 13:03] LABS: Albumin Level 4.4 g/dl (3.5-5.0); Chloride 104 mmol/L (98-107); Sodium 139 mmol/L (136-145)
[2024-10-30 13:06] LABS: Alanine Aminotransferase 41 U/L (12-78); Albumin/Globulin Ratio 1.7 (1.1-1.8); Alkaline Phosphatase 83 U/L (38-126); Aspartate Amino Transferase 36 U/L (14-36); Bilirubin,Direct 0.2 mg/dl (0.0-0.4); Bilirubin,Total 0.2 mg/dl (0.2-1.3); Blood Urea Nitrogen 15 mg/dl (7-17); Carbon Dioxide 29 mmol/L (22.0-30.0); Estimated Glomerular Filt Rate 77 ml/min (>60); GFR (African American) 93 ML/MIN (>60); Globulin 2.6 g/dL (1.3-3.2)
[2024-10-30 13:07] LABS: Calcium 9.3 mg/dl (8.4-10.2); Glucose 113 mg/dl (74-100)
== END 2024-10-30 23:59 | disposition home or self-care (01) ==
LOC: LAB 12:05
PROVIDERS: PCP Physician Assistant; Visit Provider Nurse Practitioner Family
DX: R74.01 Elevation of levels of liver transaminase levels (principal)
CPT/HCPCS: 36415; 80053; 80076; 85025

== ENCOUNTER 2024-11-07 12:23 | Outpatient (CLI) | payer BC, SELFPAY ==
--- NOTE | 2024-11-07 12:58 | ECG_ITS ---
APPROVED REPORT Exam: Resting ECG HR:83 bpm ECG Measurements Heart Rate 83 AXES TX 176 P 34 QRSd 88 QRS -2 QT 351 T 45 QTc 391 Conclusion SINUS RHYTHM POSSIBLE ANTERIOR MYOCARDIAL INFARCTION , PROBABLY OLD [30 ms Q WAVE IN V3/V4, OR R < 0.2 mV IN V4] BORDERLINE ECG UNCONFIRMED REPORT Electronically signed by : Donavon Ashford MD 11/13/2024 08:56:08
[2024-11-07 13:01] VITALS: BMI 49.7
[2024-11-07 13:11] LABS: Basophils # 0.1 K/mm3 (0-0.2); Basophils % 0.5 % (0.1-2.0); Eosinophils # 0.1 K/mm3 (0.0-0.4); Eosinophils % 0.8 % (0.1-12.0); Hematocrit 38.8 % (37.0-47.0); Hemoglobin 12.5 g/dL (12.2-16.2); Lymphocytes # 2.4 K/mm3 (0.7-4.5); Lymphocytes % 25.9 % (10-50); Mean Corpuscular HGB Conc 32.2 g/dL (31.8-35.4); Mean Corpuscular Hemoglobin 28.9 pg (27.0-31.2); Mean Corpuscular Volume 89.6 fl (81-99); Mean Platelet Volume 10.1 fl (7.4-10.4); Monocytes # 0.8 K/mm3 (0.1-1.0); Monocytes % 8.4 % (1.7-9.3); Neutrophils # 5.8 K/mm3 (1.8-7.8); Platelet Count 261 K/mm3 (142-424); Red Blood Count 4.33 M/mm3 (4.20-5.40); Red Cell Distribution Width 12.7 % (11.5-17.5); White Blood Count 9.1 K/mm3 (4.8-10.8)
[2024-11-07 13:19] LABS: Chloride 102 mmol/L (98-107); Sodium 136 mmol/L (136-145)
[2024-11-07 13:22] LABS: Calcium 9.1 mg/dl (8.4-10.2); Carbon Dioxide 29 mmol/L (22.0-30.0); Creatinine Clearance Estimated 69 mL/min (50-200); Estimated Glomerular Filt Rate 77 ml/min (>60); GFR (African American) 93 ML/MIN (>60); Glucose 110 mg/dl (74-100)
[2024-11-07 13:37] LABS: Blood Urea Nitrogen 10 mg/dl (7-17)
== END 2024-11-07 23:59 | disposition home or self-care (01) ==
LOC: PREOP 12:24
PROVIDERS: Nurse Anesthetist, Certified Registered; PCP Physician Assistant; Visit Provider Orthopaedic Surgery
DX: Z01.810 Encounter for preprocedural cardiovascular examination (principal); Z01.812 Encounter for preprocedural laboratory examination; R94.31 Abnormal electrocardiogram [ECG] [EKG]
CPT/HCPCS: 80048; 85025; 93005

== ENCOUNTER 2024-11-15 06:02 | Day surgery (SDC) | payer BC, SELFPAY ==
[2024-11-07 16:52] VITALS: BMI 49.7
[2024-11-15] VITALS (12 sets, daily range): BP systolic 102–132; BP diastolic 66–96; PULSE 71–100; RESP 16–18; TEMP 2.2–36.6; O2SAT 90–97
[2024-11-15] MEDS: LACTATED RINGERS 1000ML 1,000 ML 100 ML IV (06:37)
--- NOTE | 2024-11-15 07:16 | EXP.ANES.CKL ---
[facility] Disclaimer: The information contained in this section may have been updated after the patient was seen, as this information can be updated by other users. Medical History LAUREN on CPAP Dysphagia Sinusitis Muscle ache Sinus tachycardia Elevated blood pressure reading Left carpal tunnel syndrome Right carpal tunnel syndrome Attention Deficit Hyperactivity Disorder (ADHD) Depression Hypothyroidism Hypertension Otitis media Hyperlipidemia (~02/08/18) Vitamin D deficiency (~02/08/18) Surgical History History of cholecystectomy History of hysterectomy History of tonsillectomy and adenoidectomy Family History Other Family history of diabetes mellitus Social History (Updated 11/15/24 @ 06:30 by Mayda Panchal RN) Smoking Status: Never smoker alcohol intake: never substance use type: denies use current occupational status: unemployed Travel in the last 8 weeks: None caffeine: No Have you lived/traveled outside US in past 30 days?: No Contact w/someone who lives/traveled outside US past 30 days?: No Exposure to someone with infectious disease in past 14 days?: No Do you have a fever (greater than 100.4 F or 38 C)?: No Have you tested positive for COVID-19: No Exposed to someone with COVID-19 in past 14 days?: No Do you have a sore throat?: No Do you have a cough?: No Do you have any weakness?: No Are you experiencing any nausea/vomitting?: No Do you have any diarrhea?: No Are you experiencing any unusual bleeding?: No Do you have any muscle aches/pain?: No Do you have any abdominal pain?: No Are you experiencing loss of taste or smell?: No [facility] Anesthesia Checklist Patient Identification Patient Identification: Arm Band Structural Data Admitted From: Home Planned Operative Procedure/s: Right Carpal Tunnel Release Consent for Planned Operative Procedure(s) Verified: Yes Verified Documents: Surgical Consent and History and Physical NPO Status Verified Time NPO: 00:00 Additional verifications Anesthesia Reactions: No Hx Blood Transfusions: No Blood Transfusion Reaction: No Airway Assessment Mallampati Score:: Class II C-Spine Mobility Assessed: Yes TMJ Mobility Assessed: Yes Dentition: Good Dentition Neurological Assessment Level of Consciousness: Awake, Alert and Appropriate Anesthesia Plan Anesthesia Risk discussed: Yes Anesthesia Plan: Verified ASA Class: III Anesthesia Type: General
[2024-11-15] MEDS: CLINDAMYCIN PHOSPHATE/D5W 900 MG/50 ML PIGGYBACK 100 MG IV (07:18)
[2024-11-15] MEDS: LIDOCAINE 1% W/EPI 1:100,000 20ML VIAL 20 ML (07:40)
--- NOTE | 2024-11-15 07:54 | EXP.OP.NOTE ---
Date of procedure: 11/15/24 Pre-op Diagnosis:: Right carpal tunnel syndrome Post-op Diagnosis:: Same Procedure performed:: Right endoscopic carpal tunnel release Surgeon:: Riley Whatley DO [employer] Maker(s):: Amadeo PANTOJA MANAGER OF COMPENSATION:: Other Anesthesia: GETA Estimated blood loss (mL): 0 Operative findings:: See dictation Operative note:: Patient identified preoperatively. Right wrist marked with yes my initials. Transferred operative suite. Placed upon the brain bed. General anesthesia ministered airway secured. Right upper extremity prepped and draped normal sterile fashion. Once prepped and draped final operative timeout performed to identify proper patient procedure and extremity. Everyone involved the case agreed. There is no counter indications to beginning. Did receive preoperative antibiotics. Marking pen was used to kyra plan incision over the volar wrist. Esmarch was used to exsanguinate the extremity pneumatic tourniquet inflated 250 mmHg. Skin knife is used to incise the skin careful dissection is taken down to identify the most proximal aspect the transverse carpal ligament once identified the small dilator followed by the larger dilator was placed followed by the 4.0 mm sled for the endoscopic carpal tunnel. Once within the carpal tunnel of the transverse carpal ligament clearly seen superiorly within the camera a probe was used to identify the most distal aspect the transverse carpal ligament. Rasp was used to remove the soft tissue from the undersurface. Then the hook blade was utilized to incise the transverse carpal ligament in its entirety. This was directly visualized. Irrigation wound performed wound closed with 4-0 Monocryl hand dressing placed patient waken anesthesia taken recovery stable condition. Condition: stable Disposition: PACU Complications:: None apparent
--- NOTE | 2024-11-15 08:09 | P.PNANES_ITS ---
[facility] Anesthesia Record Part I Anesthesia Record I Intake, IV Amount: 300 Hydration: Adequate Estimated blood loss (mL): 3 Urine output (mL): 0 Blood Pressure: 116/69 SaO2: 90 Pulse Rate: 98 Airway Patency: Patent Respiratory Rate: 18 Temperature: 36 F Patient is:: Awake and Stable Stable to PACU at:: 08:10
--- NOTE | 2024-11-15 10:33 | P.PNANES_ITS ---
[facility] Anesthesia Record Part II Anesthesia Record Part II Discharge Time: 08:30 Destination: Surgical Day Care (OP Surgery) PACU nurse assessment reviewed?: Yes Patient Condition:: Good Anesthesia Complications:: None Swallowing reflex intact?: Yes Airway Patency: Patent Cyanosis?: No Blood Pressure: 132/80 SaO2: 96 Respiratory Rate: 18 Pulse Rate: 82 Temperature: 97.4 F Mental Status: Alert & Oriented Pain level:: 0 Nausea and/or vomitting:: None Intake, IV Amount: 0 Hydration: Adequate
== END 2024-11-15 09:23 | disposition home or self-care (01) ==
PROVIDERS: PCP Physician Assistant; Visit Provider Orthopaedic Surgery
PROC: (CPT 64721; principal; 2024-11-15 07:30)
DX: G56.01 Carpal tunnel syndrome, right upper limb (principal)
CPT/HCPCS: 29848; 96374; J0736; J1100; J1200; J2250; J2405; J3010; J7120

== ENCOUNTER 2025-01-23 11:34 | Outpatient (CLI) | payer BC, SELFPAY ==
--- NOTE | 2025-01-23 12:28 | ECG_ITS ---
APPROVED REPORT Exam: Resting ECG HR:77 bpm ECG Measurements Heart Rate 77 AXES OK 178 P -5 QRSd 94 QRS 10 QT 367 T 31 QTc 399 Conclusion SINUS RHYTHM Late R wave progression Isolated Q in III BORDERLINE ECG UNCONFIRMED REPORT Electronically signed by : Donavon Ashford MD 01/24/2025 08:49:18
== END 2025-01-23 23:59 | disposition home or self-care (01) ==
LOC: PREOP 11:35
PROVIDERS: PCP Physician Assistant; Visit Provider Orthopaedic Surgery
DX: R94.31 Abnormal electrocardiogram [ECG] [EKG] (principal)
CPT/HCPCS: 93005

== ENCOUNTER 2025-02-05 06:01 | Day surgery (SDC) | payer BC, SELFPAY ==
[2025-01-23 12:39] LABS: Basophils % 0.5 % (0.1-2.0); Eosinophils # 0.1 Kmm3 (0.0-0.4); Eosinophils % 0.9 % (0.1-12.0); Hemoglobin 13.1 g/dL (12.2-16.2); Immature Granulocytes # 0.01 10^3uL; Immature Granulocytes % 0.1 %; Lymphocytes # 2.5 K/mm3 (0.7-4.5); Lymphocytes % 30.6 % (10-50); Mean Corpuscular Hemoglobin 29.2 pg (27.0-31.2); Mean Corpuscular Volume 91.3 fl (81-99); Mean Platelet Volume 10.9 fl (7.4-10.4); Monocytes # 0.7 K/mm3 (0.1-1.0); Monocytes % 8.1 % (1.7-9.3); Neutrophils # 4.8 K/mm3 (1.8-7.8); Neutrophils % 59.8 % (37.0-80.0); Nucleated Red Blood Cells # 0 10^3/uL; Nucleated Red Blood Cells % 0 %; Platelet Count 215 K/mm3 (142-424); Red Blood Count 4.49 M/mm3 (4.20-5.40); Red Cell Distribution Width 12.7 % (11.5-17.5); Red Cell Distribution Width-SD 42.1 fL; White Blood Count 8.1 K/mm3 (4.8-10.8)
[2025-01-23 12:42] LABS: Chloride 106 mmol/L (98-107)
[2025-01-23 12:43] LABS: Sodium 138 mmol/L (136-145)
[2025-01-23 12:46] LABS: Blood Urea Nitrogen 13 mg/dl (7-17); Carbon Dioxide 29 mmol/L (22.0-30.0); Estimated Glomerular Filt Rate 90 ml/min (>60); GFR (African American) 109 ML/MIN (>60); Glucose 120 mg/dl (74-100)
[2025-01-23 14:52] VITALS: BMI 49.9
[2025-02-05 06:23] VITALS: BP 99/48; PULSE 78; RESP 16; TEMP 36.2; O2SAT 93
[2025-02-05] MEDS: LACTATED RINGERS 1000ML 1,000 ML 100 ML IV (06:43)
--- NOTE | 2025-02-05 07:02 | P.PNANES_ITS ---
[facility] Disclaimer: The information contained in this section may have been updated after the patient was seen, as this information can be updated by other users. Medical History History of sleep apnea LAUREN on CPAP Dysphagia Sinusitis Muscle ache Sinus tachycardia Elevated blood pressure reading Left carpal tunnel syndrome Right carpal tunnel syndrome Attention Deficit Hyperactivity Disorder (ADHD) Depression Hypothyroidism Hypertension Otitis media Hyperlipidemia (~02/08/18) Vitamin D deficiency (~02/08/18) Surgical History History of carpal tunnel surgery of right wrist History of cholecystectomy History of hysterectomy History of tonsillectomy and adenoidectomy Family History Other Family history of diabetes mellitus Social History (Updated 02/05/25 @ 06:41 by Carly Ha RN) Smoking Status: Never smoker alcohol intake: never substance use type: denies use current occupational status: unemployed Travel in the last 8 weeks?: None caffeine: No Have you lived/traveled outside US in past 30 days?: No Contact w/someone who lives/traveled outside US past 30 days?: No Exposure to someone with infectious disease in past 14 days?: No Do you have a fever (greater than 100.4 F or 38 C)?: No Have you tested positive for COVID-19?: No Exposed to someone with COVID-19 in past 14 days?: No Do you have a sore throat?: No Do you have a cough?: No Do you have any weakness?: No Are you experiencing any nausea/vomitting?: No Do you have any diarrhea?: No Are you experiencing any unusual bleeding?: No Do you have any muscle aches/pain?: No Do you have any abdominal pain?: No Are you experiencing loss of taste or smell?: No [facility] Anesthesia Checklist Patient Identification Patient Identification: Verbal (Name & ) Structural Data Admitted From: Home Planned Operative Procedure/s: l carpal tunnel Consent for Planned Operative Procedure(s) Verified: Yes NPO Status Verified Time NPO: 00:00 Additional verifications Anesthesia Reactions: No Hx Blood Transfusions: No Blood Transfusion Reaction: No Airway Assessment Mallampati Score:: Class II C-Spine Mobility Assessed: Yes TMJ Mobility Assessed: Yes Dentition: Good Dentition Neurological Assessment Level of Consciousness: Awake, Alert and Appropriate Anesthesia Plan Anesthesia Risk discussed: Yes Anesthesia Plan: Verified ASA Class: II Anesthesia Type: General
[2025-02-05] MEDS: CLINDAMYCIN PHOSPHATE/D5W 900 MG/50 ML PIGGYBACK 25 MG (07:45)
[2025-02-05] MEDS: LIDOCAINE 1% W/EPI 1:100,000 20ML VIAL 20 ML (07:54)
[2025-02-05 08:13] VITALS: BP 102/70; PULSE 86; RESP 18; TEMP 36.4; O2SAT 97
--- NOTE | 2025-02-05 08:15 | EXP.OP.NOTE ---
Date of procedure: 02/05/25 Pre-op Diagnosis:: Left carpal tunnel syndrome Post-op Diagnosis:: Same Procedure performed:: Left endoscopic carpal tunnel release Surgeon:: Riley Whatley DO Template Cutter(s):: Amadeo PANTOJA SUPERINTENDENT OPERATING:: Krystian Obrien Anesthesia: MAC and local Estimated blood loss (mL): 0 Operative findings:: See dictation Operative note:: Patient was identified preoperatively. Left wrist marked with yes my initials. Then transported operative suite. Placed final operating bed with a hand table. Left upper extremity prepped and draped normal sterile fashion. Patient given sedation. Once prepped and draped final operative timeout performed to identify proper patient procedure and extremity. Everyone involved in the case agreed. There were no counter indications to beginning. She did receive preoperative antibiotics with clindamycin. Marking pen was used to kyra plan incision over the volar wrist Esmarch was used to exsanguinate the extremity after local anesthesia was infiltrated into the incision site and surgical site. Incision was made through the skin and careful dissection was taken down with the scissors retractors were placed and dissection is taken down to identify the most proximal aspect of the transverse carpal ligament. Once identified the smaller dilator followed by the larger dilator was placed into the carpal tunnel. The camera was introduced after this sled 4.0 mm was placed. Transverse carpal ligament clearly seen superiorly within the camera view. Endoscopic hook probe was utilized to identify the most distal aspect the transverse carpal ligament rasp was utilized to remove soft tissue. Then the hook knife was introduced under direct visualization and transverse carpal ligament was incised and complete release of the carpal tunnel performed. Sled removed. Irrigation of the wound performed. Skin closed with Monocryl and Steri-Strips. Sterile hand dressing placed patient waken from sedation taken recovery in stable condition. Condition: stable Disposition: PACU Complications:: None apparent
[2025-02-05 08:23] VITALS: BP 103/66; PULSE 78; RESP 16; O2SAT 91
[2025-02-05 08:33] VITALS: BP 94/64; PULSE 76; RESP 16; O2SAT 94
[2025-02-05 08:43] VITALS: BP 99/58; PULSE 68; RESP 17; O2SAT 93
== END 2025-02-05 09:10 | disposition home or self-care (01) ==
PROVIDERS: Nurse Anesthetist, Certified Registered; PCP Physician Assistant; Visit Provider Orthopaedic Surgery
PROC: (CPT 64721; principal; 2025-02-05 07:30)
DX: G56.02 Carpal tunnel syndrome, left upper limb (principal); E78.5 Hyperlipidemia, unspecified; I10 Essential (primary) hypertension; E03.9 Hypothyroidism, unspecified; Z79.899 Other long term (current) drug therapy; Z88.0 Allergy status to penicillin; Z79.890 Hormone replacement therapy
CPT/HCPCS: 29848; 96374; J0736; J2250; J3010; J7120